=== PATIENT | female | born 1990 | race Native Hawaiian/Other Pacific Islander ===

== ENCOUNTER 2018-02-20 13:17 | Emergency (ER) | payer OTHER, BC ==
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
[2018-02-20] MEDS ORDERED: ACETAMINOPHEN 325 MG TABLET PO ONE (14:18)
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
[2018-02-20 16:07] VITALS: BP 115/77
--- NOTE | 2018-02-20 21:05 | EKG REPORT ---
SEVERITY:- NORMAL ECG - SINUS RHYTHM : Confirmed by: Lindsey Horowitz MD 20-Feb-2018 21:04:25
== END 2018-02-20 16:07 | disposition home or self-care (01) ==
LOC: ER 13:17
DX: M54.2 Cervicalgia (principal); R51 Headache; V58.5XXA Driver of pick-up truck or van injured in noncollision transport accident in traffic accident, initial encounter
CPT/HCPCS: 93005; 99284; 71046; 70450; 72125; 93010; L0120